=== PATIENT | male | born 1935 | race Caucasian/White ===

== ENCOUNTER 2017-12-13 09:44 | Observation (INO) | payer MEDICARE, OTHER ==
[2017-12-13] MEDS ORDERED: Diltiazem IV* 5 MG/ML 5 ML VIAL (for loading dose/IV Push) (25 MG) ONE (09:59)
[2017-12-13] MEDS ORDERED: Aspirin 81 mg CHEW TAB* 81 MG TAB.CHEW PO ONE (10:04)
[2017-12-13] MEDS ORDERED: Diltiazem IV* 5 MG/ML 5 ML VIAL (for loading dose/IV Push) (25 MG) IV SLOW PU ONE (10:04)
[2017-12-13] MEDS ORDERED: NS 0.9% 1000 ML* 1,000 ML IV ONE (10:04)
--- NOTE | 2017-12-13 10:28 | RAD ---
INDICATION: Tachycardia COMPARISON: None TECHNIQUE: An AP portable view obtained at 1020 hours is submitted. FINDINGS: Bones/Soft Tissues: There are no acute bony findings. Cardiomediastinal: The cardiomediastinal silhouette is normal. Lungs: There is mild hyperinflation with mild chronic appearing interstitial change. Pleura: There are no pleural effusions. Other: None IMPRESSION: MILD HYPERINFLATION MILD INTERSTITIAL PROMINENCE. NO FOCAL INFILTRATES OR VASCULAR CONGESTIVE FINDINGS
[2017-12-13 10:30] LABS: ABS Basophils 0 10^3/ul (0-0.2); ABS Eosinophils 0.1 10^3/ul (0-0.6); ABS Monocytes 0.6 10^3/ul (0-0.8); ABS Neutrophils 8.7 10^3/ul (1.5-7.7); ABS Nucleated RBC 0 10^3/ul; Eosinophil % 1.4 % (0-6); Hematocrit 49 % (42-52); Hemoglobin 16.7 g/dl (14.0-18.0); Lymphocyte % 9.5 % (25-47); Mean Corpuscular HGB Conc 34 g/dl (31-36); Mean Corpuscular Hemoglobin 30 pg (27-31); Mean Corpuscular Volume 89 fL (80-94); Mean Platelet Volume 8.2 um3 (7.4-10.4); Nucleated Red Blood Cells % 0; Platelet Count 167 10^3/ul (150-450); Red Cell Distribution Width 14 % (10.5-15); White Blood Count 10.5 10^3/ul (3.5-10.8)
[2017-12-13 10:38] LABS: INR 0.94 (0.77-1.02)
[2017-12-13 10:50] LABS: EGFR Non-African American 57.6 (>60)
[2017-12-13] MEDS ORDERED: Diltiazem DRIP* 100 MG/100 ML ADDV.BAG IVPB ONE (10:50)
[2017-12-13] MEDS ORDERED: Diltiazem IV VIAL* 125 MG in NS 0.9% 100 ML* 100 ML IVPB ONE ×3 (10:50→13:57)
--- NOTE | 2017-12-13 12:55 | ED ---
Leonora Segovia Julia, scribed for Juan Curran MD on 12/13/17 at 1004 . Dizziness - HPI Summary HPI Summary: This patient is an 82 year old M presenting to [facility] with a chief complaint of dizziness and headache after taking amlodipine for his recently diagnosed HTN, this morning. He states he is unable to walk straight. Reports headache, one bout of vomiting, and elevated blood pressure. Denies CP and SOB. Denies hx of a -fib or irregular heart rhythms. Denies other regular medications. - History Of Current Complaint Chief Complaint: EDDizziness Stated Complaint: DIZZINESS,HEADACHES Time Seen by Provider: 12/13/17 09:57 Hx Obtained From: Patient Onset/Duration: Still Present Timing: Hours Character: Dizzy Aggravating Factor(s): Other - new medication Alleviating Factor(s): Nothing Associated Signs And Symptoms: Positive: Vomiting, Unsteady Gait, Change In Medication. Negative: Chest Pain, SOB - Allergies/Home Medications Allergies/Adverse Reactions: Allergies Allergy/AdvReac Type Severity Reaction Status Date / Time No Known Allergies Allergy Verified 12/13/17 09:52 Home Medications: Home Medications Amlodipine Besylate [Norvasc 5 mg tab] 5 mg PO DAILY 12/13/17 [History Confirmed 12/13/17] Aspirin 81 mg CHEW TAB* 1 tab PO DAILY 12/13/17 [History Confirmed 12/13/17] PMH/Surg Hx/FS Hx/Imm Hx Cardiovascular History: Reports: Hx Hypertension Respiratory History: Denies: Hx Chronic Obstructive Pulmonary Disease (COPD) EENT History: Denies: Hx Deafness - Surgical History Surgery Procedure, Year, and Place: tonsils Infectious Disease History: No Infectious Disease History: Denies: Hx Clostridium Difficile, Hx Hepatitis, Hx Human Immunodeficiency Virus (HIV), Hx of Known/Suspected MRSA, Hx Shingles, Hx Tuberculosis, Hx Known/ Suspected VRE, Hx Known/Suspected VRSA, History Other Infectious Disease, Traveled Outside the [place] in Last 30 Days - Family History Known Family History: Negative: Diabetes - Social History Alcohol Use: Occasionally Substance Use Type: Reports: None Smoking Status (MU): Never Smoked Tobacco Have You Smoked in the Last Year: No Review of Systems Cardiovascular: Other - elevated BP Negative: Palpitations, Chest Pain Negative: Shortness Of Breath Positive: Vomiting Neurological: Other - dizziness, unsteady gait Positive: Headache All Other Systems Reviewed And Are Negative: Yes Physical Exam - Summary Physical Exam Summary: General: well-appearing, no pain distress Skin: warm, color reflects adequate perfusion, dry Head: normal Eyes: EOMI, NEETA ENT: normal Neck: supple, nontender Respiratory: CTA, breath sounds present Cardiovascular: tachycardia, irregularly irregular Abdomen: soft, nontender Bowel: present Musculoskeletal: normal, strength/ROM intact Neurological: sensory/motor intact, A&O x3 Psychological: affect/mood appropriate Triage Information Reviewed: Yes Vital Signs On Initial Exam: Initial Vitals Temp Pulse Resp BP Pulse Ox 97.1 F 87 16 114/69 96 12/13/17 09:47 12/13/17 09:47 12/13/17 09:47 12/13/17 09:47 12/13/17 09:47 Vital Signs Reviewed: Yes Diagnostics - Vital Signs Vital Signs Temp Pulse Resp BP Pulse Ox 12/13/17 09:47 97.1 F 87 16 114/69 96 - Laboratory Lab Results: Lab Results 12/13/17 12/13/17 12/13/17 Range/Units 10:08 10:08 10:08 WBC 10.5 (3.5-10.8) 10^3/ul RBC 5.50 H (4.00-5.40) 10^6/ul Hgb 16.7 (14.0-18.0) g/dl Hct 49 (42-52) % MCV 89 (80-94) fL MCH 30 (27-31) pg MCHC 34 (31-36) g/dl RDW 14 (10.5-15) % Plt Count 167 (150-450) 10^3/ul MPV 8.2 (7.4-10.4) um3 Neut % (Auto) 83.1 H (38-83) % Lymph % (Auto) 9.5 L (25-47) % [place] % (Auto) 5.7 (0-7) % Eos % (Auto) 1.4 (0-6) % Baso % (Auto) 0.3 (0-2) % Absolute Neuts (auto) 8.7 H (1.5-7.7) 10^3/ul Absolute Lymphs (auto) 1.0 (1.0-4.8) 10^3/ul Absolute Monos (auto) 0.6 (0-0.8) 10^3/ul Absolute Eos (auto) 0.1 (0-0.6) 10^3/ul Absolute Basos (auto) 0 (0-0.2) 10^3/ul Absolute Nucleated RBC 0 10^3/ul Nucleated RBC % 0 INR (Anticoag Therapy) 0.94 (0.77-1.02) APTT 33.7 (26.0-36.3) seconds D-Dimer, Quantitative < 200 (Less Than 230) ng/mL Sodium 139 (135-145) mmol/L Potassium 3.7 (3.5-5.0) mmol/L Chloride 104 (101-111) mmol/L Carbon Dioxide 27 (22-32) mmol/L Anion Gap 8 (2-11) mmol/L BUN 20 (6-24) mg/dL Creatinine 1.21 H (0.67-1.17) mg/dL Est GFR ( Amer) 69.6 (>60) Est GFR (Non-Af Amer) 57.6 (>60) BUN/Creatinine Ratio 16.5 (8-20) Glucose 130 H (70-100) mg/dL Lactic Acid (0.5-2.0) mmol/L Calcium 9.3 (8.6-10.3) mg/dL Magnesium 2.3 (1.9-2.7) mg/dL Total Bilirubin 0.80 (0.2-1.0) mg/dL AST 14 (13-39) U/L ALT 9 (7-52) U/L Alkaline Phosphatase 62 (34-104) U/L Total Creatine Kinase 98 (10-223) U/L CK-MB (CK-2) 3.8 (0.6-6.3) ng/mL Troponin I 0.00 (<0.04) ng/mL C-Reactive Protein < 1.00 (<8.01) mg/L B-Natriuretic Peptide ( - 100) pg/mL Total Protein 6.3 L (6.4-8.9) g/dL Albumin 3.9 (3.2-5.2) g/dL Globulin 2.4 (2-4) g/dL Albumin/Globulin Ratio 1.6 (1-3) Lipase 48 (11.0-82.0) U/L TSH 2.63 (0.34-5.60) mcIU/mL 12/13/17 12/13/17 Range/Units 10:08 10:08 WBC (3.5-10.8) 10^3/ul RBC (4.00-5.40) 10^6/ul Hgb (14.0-18.0) g/dl Hct (42-52) % MCV (80-94) fL MCH (27-31) pg MCHC (31-36) g/dl RDW (10.5-15) % Plt Count (150-450) 10^3/ul MPV (7.4-10.4) um3 Neut % (Auto) (38-83) % Lymph % (Auto) (25-47) % [place] % (Auto) (0-7) % Eos % (Auto) (0-6) % Baso % (Auto) (0-2) % Absolute Neuts (auto) (1.5-7.7) 10^3/ul Absolute Lymphs (auto) (1.0-4.8) 10^3/ul Absolute Monos (auto) (0-0.8) 10^3/ul Absolute Eos (auto) (0-0.6) 10^3/ul Absolute Basos (auto) (0-0.2) 10^3/ul Absolute Nucleated RBC 10^3/ul Nucleated RBC % INR (Anticoag Therapy) (0.77-1.02) APTT (26.0-36.3) seconds D-Dimer, Quantitative (Less Than 230) ng/mL Sodium (135-145) mmol/L Potassium (3.5-5.0) mmol/L Chloride (101-111) mmol/L Carbon Dioxide (22-32) mmol/L Anion Gap (2-11) mmol/L BUN (6-24) mg/dL Creatinine (0.67-1.17) mg/dL Est GFR ( Amer) (>60) Est GFR (Non-Af Amer) (>60) BUN/Creatinine Ratio (8-20) Glucose (70-100) mg/dL Lactic Acid 1.6 (0.5-2.0) mmol/L Calcium (8.6-10.3) mg/dL Magnesium (1.9-2.7) mg/dL Total Bilirubin (0.2-1.0) mg/dL AST (13-39) U/L ALT (7-52) U/L Alkaline Phosphatase (34-104) U/L Total Creatine Kinase (10-223) U/L CK-MB (CK-2) (0.6-6.3) ng/mL Troponin I (<0.04) ng/mL C-Reactive Protein (<8.01) mg/L B-Natriuretic Peptide 33 ( - 100) pg/mL Total Protein (6.4-8.9) g/dL Albumin (3.2-5.2) g/dL Globulin (2-4) g/dL Albumin/Globulin Ratio (1-3) Lipase (11.0-82.0) U/L TSH (0.34-5.60) mcIU/mL Result Diagrams: 12/13/17 10:08 12/13/17 10:08 Lab Statement: Any lab studies that have been ordered have been reviewed, and results considered in the medical decision making process. - Radiology CXR Radiology Interpretation Completed By: Radiologist - MILD HYPERINFLATION MILD INTERSTITIAL PROMINENCE. NO FOCAL INFILTRATES OR VASCULAR CONGESTIVE FINDINGS ED Physician has reviewed this report. - EKG 0958 Cardiac Rate: Tachycardia - 151 BPM EKG Rhythm: Atrial Fibrillation EKG Interpretation: minimal ST depression in inferior leads Dizzy Course/Dx - Course Course Of Treatment: ADMIT HOSPITALIST. - Diagnoses Provider Diagnoses: New onset a-fib - Provider Notifications Discussed Care Of Patient With: Jacinto Simmons - hospitalist Time Discussed With Above Provider: 11:05 Instructed by Provider To: Admit As Inpatient - Critical Care Time Critical Care Time: 30-74 min Discharge - Sign-Out/Discharge Documenting (check all that apply): Discharge/Admit/Transfer - admit - Discharge Plan Condition: Stable Disposition: ADMITTED TO [facility] Referrals: Krista Taylor MD [Medical Doctor] - - Billing Disposition and Condition Condition: STABLE Disposition: Admitted to [facility] The documentation as recorded by the Leonora saeed Julia accurately reflects the service I personally performed and the decisions made by Bina ibrahim William, MD.
[2017-12-13] MEDS ORDERED: Potassium Chlor TAB* 20 MEQ TAB.ER PO ONE (13:10)
--- NOTE | 2017-12-13 14:40 | RAD ---
INDICATION: Headaches COMPARISON: CT brain December 05, 2015 TECHNIQUE: Noncontrast axial source images were acquired from the skull base to the vertex. FINDINGS: Ventricles/sulci: There is age-related atrophy with compensatory dilatation of the CSF spaces.. Brain parenchyma: There is periventricular and subcortical white matter change compatible with chronic ischemia. There are no acute findings. Intracranial hemorrhage:None. Extra-axial spaces: There are no abnormal extra axial fluid collections or evidence of extra-axial mass. Calvarium: There is no calvarial fracture or other calvarial abnormality. Scalp: There is no evidence of scalp or extracalvarial soft tissue abnormality. Paranasal sinuses/mastoid: The paranasal sinuses and mastoid air cells are clear. Other: Incidental note is made of calcification of the falx. IMPRESSION: Age-related atrophy. Chronic microvascular ischemic change. No acute findings
[2017-12-13 14:51] LABS: Urine Appearance Clear; Urine Blood 1+ (Negative); Urine Color Straw; Urine Ketones Negative (Negative); Urine Protein Negative (Negative); Urine Specific Gravity 1.006 (1.010-1.030); Urine Urobilinogen Negative (Negative)
--- NOTE | 2017-12-13 15:52 | HP ---
CC: Dr. Guevara* [facility] MEDICINE HISTORY AND PHYSICAL: DATE OF ADMISSION: 12/13/17 PRIMARY CARE PHYSICIAN: Dr. Guevara. ATTENDING PHYSICIAN: Jacinto Simmons MD * (dictation provided by Rosalba Cruz NP). CHIEF COMPLAINT: Headache. HISTORY OF PRESENT ILLNESS: Mr. Tong is an 82-year-old male with some memory issues, though no clear diagnosis of dementia, as well as hypertension, who presents to the hospital today with concern for headaches. Mr. Tong is accompanied by his son who provides some of the history as well. Per the report the patient started complaining of headachesintermittently starting about a month ago. He again noted a headache this week to his son. 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 On Thursday, his was trying to escape from the home and he ran after her. On returning into the home he was holding his head and complaining of a severe headache. His blood pressure was taken in and around that time and noted to be 153/105. He took one of his amlodipine and it was then 145/84. The patient has also described feeling dizzy at times and that his head was pounding. He denies any chest palpitations or chest pain. He also denies shortness of breath. He has had no nausea, vomiting, diarrhea, abdominal pain. In the emergency room, Mr. Tong was confirmed to be in rapid atrial fibrillation with the heart rate running as high as 160. His blood pressure has been running 90s to 143 systolically. The remainder of his workup shows that he is mildly hypokalemic with potassium of 3.7 and magnesium is normal at 2.3. His troponin is normal at 0.00. His EKG again confirms the AFib. His D- dimer is less than 200. His chest x-ray shows no acute process. PAST MEDICAL HISTORY: Hypertension. MEDICATIONS: 1. Aspirin 81 mg p.o. daily. 2. Amlodipine 5 mg p.o. daily. ALLERGIES: No known drug allergies. FAMILY HISTORY: The patient reports his mother in her 90s of old age. Father related to heart problems and was a heavy smoker. SOCIAL HISTORY: No report of alcohol, tobacco, or drug use. The patient lives with his and is the primary caregiver for her, and she has advanced dementia. REVIEW OF SYSTEMS: A 14-point review of systems was completed with Mr. Tong and all those not mentioned above were negative. PHYSICAL EXAMINATION GENERAL: Mr. Tong is sitting up in the bed with his son at the bedside. He is in no acute distress and joking throughout the examination. VITAL SIGNS: Temperature 97.1, pulse rate has ran from 170s and is now about 119, respiratory rate 19, O2 saturation 96% on room air, blood pressure 143/112. LUNGS: Clear to auscultation bilaterally. No accessory muscle use and good aeration. HEART: S1, S2. No murmur, rub or gallop. Irregular and rapid. ABDOMEN: Soft, nontender with bowel sounds positive x4. EXTREMITIES: No cyanosis. No edema. NEUROLOGICAL: He is alert. He is oriented x3. He moves all extremities equally. There is no facial asymmetry or focal weakness. Extraocular movements are intact. There is no ataxia with [id number] and [id number]. SKIN: Intact. DIAGNOSTIC STUDIES/LAB DATA: WBC 10.5, hemoglobin 16.7, hematocrit 49, platelet count 167,000. INR 0.94. Sodium 139, potassium 3.7, chloride 104, serum bicarbonate 27, BUN 20, creatinine 1.21, glucose 130, lactic acid 1.61. Troponin 0.00. TSH 2.63. Again, chest x-ray showed no acute intrathoracic process. EKG showed atrial fibrillation with a heart rate of about 150. ASSESSMENT: Mr. Tong is an 82-year-old male with a past medical history of hypertension, who reported frequent pounding headaches over the past month, increasing in frequency, now found to be in rapid atrial fibrillation. Our plans are for observation in the hospital for the followin. Rapid atrial fibrillation: The patient's blood pressure is stable and he is asymptomatic at this point. He is on the diltiazem drip at 10 mg per hour. Plan to increase up to a max drip of 20 mg per hour and then likely transition over to metoprolol or other agents. The patient is having some good effect from the diltiazem. His heart rate is down from 170s to about 100s. It does increase as the patient is frequently and easily made anxious during conversations about his symptoms and about the fact that he needs to stay in the hospital overnight. The patient's son will be staying with him as much as possible to provide reassurance and supportive care. In terms of risk for atrial fibrillation, the patient does not drink alcohol. He has no history of cigarette smoking or chronic obstructive pulmonary disease. He states he does drink Mountain Dew and his son notes that this is "more than I would wish." It is possible that caffeine could be contributing and I have advised the family of this. The patient will have a transthoracic echocardiogram and have telemetry monitoring. In terms of his CHADS- VASC2 score, it is calculated to be 3 based on his age and his history of hypertension. I have discussed the risk and benefits of anticoagulation with the patient and his son, and the plan will be to start Xarelto tonight. The patient has no evidence of falls. He does not take ibuprofen regularly. He has no evidence or history of gastrointestinal bleed. The patient can follow up closely with his primary care physician, Dr. Mcelroy, to continue to review the risk and benefits of this medication to prevent stroke. 2. Hypertension. Plan to hold amlodipine while adjusting medications for atrial fibrillation. 3. Headaches. Patient reports frequent headaches recently. He has no focal neurological deficit. His family notes that this in the setting of extreme stress and anxiety related to caring for his who has advanced dementia. CT brain obtained today is negative. I question if patient's headaches could be related to afib and hypertension. Plan to control both and provide acetaminophen and/or ibuprofen. If patient's headaches persist despite treatment and control of stressors, further workup could be undertaken. 4. DVT prophylaxis with Xarelto. 5. Code status is full code. This was reviewed with the patient and his son at the bedside. TIME SPENT: Approximately 60 minutes were spent on the admission of this patient, more than half time spent with the patient at the bedside reviewing the events leading up to this hospitalization, performing the physical examination, and reviewing my plan of care. ROSALBA CRUZ NP [id number]/[facility] #: [id number] ASYA
[2017-12-13] MEDS: Acetaminophen TAB* 325 MG PO PRN ×2 (16:44→23:06)
[2017-12-13] MEDS: Diltiazem TAB* 30 MG PO SCH (23:06)
[2017-12-14] MEDS: Diltiazem TAB* 30 MG PO SCH ×3 (06:03→18:36)
[2017-12-14] MEDS: NS 0.9% 1000 ML* 1,000 ML IV SCH ×2 (10:48→22:02)
--- NOTE | 2017-12-14 12:25 | ECHO ---
Patient: SILVIANO JUAN [facility] Rec#: [id number] : 1935 Date: 12/14/2017 Age: 82y Height: 182.88 cm / 72.0 in Weight: 81.65 kg / 180.0 lbs Sex: M BSA: 2.04 Room#: [facility] Admit Date#: 12/13/2017 Type: Inpatient Referring: Rosalba Cruz NP Reading: Jori Campuzano MD Wood Type Finisher: Sophia Dela Cruz RDCS CC: Angelo Guevara MD Transthoracic Echocardiogram Indication: Atrial fibrillation BP: 116/72 HR: 76 Rhythm: NSR Findings History: HTN, a-fib. Technical Comments: The study quality is fair. Completed at 1020. Left Ventricle: The left ventricular chamber size is normal. Mild concentric left ventricular hypertrophy is observed. Global left ventricular wall motion and contractility are within normal limits. There is normal left ventricular systolic function. The estimated ejection fraction is 55-60%. Normal left ventricular diastolic filling is observed. Left Atrium: The left atrial chamber size is normal. Right Ventricle: Moderator Band present. The right ventricular cavity size is normal. The right ventricular global systolic function is normal. Right Atrium: The right atrium is mildly dilated. Aortic Valve: The aortic valve is trileaflet. There is mild thickening of the right coronary cusp. There is a trace of aortic regurgitation. There is no evidence of aortic stenosis. Mitral Valve: The mitral valve leaflets are mildly thickened. There is a trace of mitral regurgitation. There is no evidence of mitral stenosis. Tricuspid Valve: The tricuspid valve leaflets are normal. There is trace to mild tricuspid regurgitation. The right ventricular systolic pressure is estimated at 27 mmHg. No pulmonary hypertension is noted. There is no tricuspid stenosis. Pulmonic Valve: The pulmonic valve appears normal. There is a trace pulmonic regurgitation. There is no pulmonic stenosis. Pericardium: There is no significant pericardial effusion. Aorta: There is mild dilatation of the ascending aorta. The aortic arch is not well visualized. The aortic root is normal in size. Pulmonary Artery: The main pulmonary artery is not well visualized. Venous: The venous system is not well visualized. The inferior vena cava is dilated. There is a greater than 50% respiratory change in the inferior vena cava dimension. Conclusions Mild concentric left ventricular hypertrophy is observed. Global left ventricular wall motion and contractility are within normal limits. The estimated ejection fraction is 55-60%. The right ventricular global systolic function is normal. There is a trace of aortic regurgitation. There is a trace of mitral regurgitation. There is trace to mild tricuspid regurgitation. No pulmonary hypertension is noted. There is no significant pericardial effusion. Measurements Name Value Normal Range RVIDd (AP) 2D 2.8 cm (0.9 - 2.6) RVDdMajor (2D) 4.3 cm (2.2 - 4.4) RAd ISD 4CH 5.2 cm (3.4 - 4.9) RA (A4C)W 3.4 cm (2.9 - 4.6) IVSd (2D) 1.2 cm (0.6 - 1) LVPWd (2D) 1.2 cm (0.6 - 1) LVIDd (2D) 3.7 cm (3.6 - 5.4) LVIDs (2D) 2.5 cm - LV FS (2D) 31 % (25 - 45) Aortic Annulus 2.4 cm (1.4 - 2.6) Ao root diameter (2D) 3.4 cm (2.1 - 3.5) Ascending Ao 3.7 cm (2.1 - 3.4) LA dimension (AP) 2D 3.3 cm (2.3 - 3.8) LAd ISD 4CH 5.2 cm (2.9 - 5.3) LA ISD 4CH W 3.8 cm (2.5 - 4.5) Name Value Normal Range LA ESV SP 4CH (A/L) 49 ml - LA ESV SP 2CH (A/L) 47 ml - LA ESV BP (A/L) 50 ml - LA ESV BP (A/L) index 24 ml/m2 - LA ESV SP 4CH (MOD) 46 ml - LA ESV SP 2CH (MOD) 46 ml - Name Value Normal Range MV E-wave Vmax 0.73 m/sec - MV deceleration time 251.9 msec - MV A-wave Vmax 0.58 m/sec - MV E:A ratio 1.26 ratio - LV septal e' Vmax 0.09 m/sec - LV lateral e' Vmax 0.11 m/sec - LV E:e' septal ratio 8.11 ratio - LV E:e' lateral ratio 6.64 ratio - Name Value Normal Range AV Vmax 1.42 m/sec - AV VTI 30.1 cm - AV peak gradient 8.17 mmHg - AV mean gradient 4.56 mmHg - LVOT Vmax 0.87 m/sec - LVOT VTI 17.61 cm - LVOT peak gradient 3.05 mmHg - LVOT mean gradient 1.41 mmHg - VINITA Vmax 0.58 m/sec - Name Value Normal Range TR Vmax 2.1 m/sec - TR peak gradient 19 mmHg - RAP 8 mmHg - RVSP 27 mmHg - IVC diameter 2.1 cm - Name Value Normal Range PV Vmax 1.01 m/sec - PV peak gradient 4.11 mmHg -
[2017-12-14] MEDS: Acetaminophen TAB* 325 MG PO SCH ×2 (13:12→22:04)
[2017-12-14] MEDS ORDERED: Rivaroxaban TAB(*) 20 MG TAB PO SCH (17:00)
--- NOTE | 2017-12-14 19:39 | PN ---
Subjective Date of Service: 12/14/17 Interval History: Pt seen and examined. Meds and labs reviewed. ROS: Pt complaining of STOVALL for the last 3 months. Denied dizziness, F/C, N/V, CP, SOB, increased cough, sputum production, abd pain, diarrhea, constipation, dysuria, myalgias, arthralgias, throat pain, and new skin lesions. The rest of the 14 point ROS are unremarkable. PHYSICAL EXAM: GEN APPEARANCE: Awake, not in acute distress HEENT: NC/AT, PERRLA, moist oral mucosa, (-) throat erythema NECK: Soft, supple, (-) cervical LAD, (-)JVD HEART: S1S2 WNL, RRR, No MRG CHEST: CTA, BL, GAE, No W/R/R ABD: Soft, ND/NT, NABS 4x Q EXT: No C/C/E SKIN: Warm to touch PSYCH: No active psychosis, hallucinations, depression, SI/HI Objective Active Medications: Acetaminophen (Tylenol Tab*) 650 mg PO Q6H PRN PRN Reason: PAIN Last Admin: 12/13/17 23:06 Dose: 650 mg Acetaminophen (Tylenol Tab*) 975 mg PO BID [facility] Last Admin: 12/14/17 13:12 Dose: 975 mg Diltiazem HCl (Cardizem Tab*) 30 mg PO Q6HR [facility] Last Admin: 12/14/17 18:36 Dose: 30 mg Sodium Chloride (Ns 0.9% 1000 Ml*) 1,000 mls @ 100 mls/hr IV PER RATE [facility] Last Admin: 12/14/17 10:48 Dose: 100 mls/hr Rivaroxaban (Xarelto(*)) 15 mg PO DAILY [facility] Vital Signs - 8 hr 12/14/17 15:37 Temperature 98.1 F Pulse Rate 85 Respiratory 18 Rate Blood Pressure 137/76 (mmHg) O2 Sat by Pulse 92 Oximetry Oxygen Devices in Use Now: None Result Diagrams: 12/13/17 10:08 12/14/17 05:49 Additional Lab and Data: Lab Results 12/13/17 12/13/17 12/13/17 Range/Units 10:08 10:08 10:08 WBC 10.5 (3.5-10.8) 10^3/ul RBC 5.50 H (4.00-5.40) 10^6/ul Hgb 16.7 (14.0-18.0) g/dl Hct 49 (42-52) % MCV 89 (80-94) fL MCH 30 (27-31) pg MCHC 34 (31-36) g/dl RDW 14 (10.5-15) % Plt Count 167 (150-450) 10^3/ul MPV 8.2 (7.4-10.4) um3 Neut % (Auto) 83.1 H (38-83) % Lymph % (Auto) 9.5 L (25-47) % [place] % (Auto) 5.7 (0-7) % Eos % (Auto) 1.4 (0-6) % Baso % (Auto) 0.3 (0-2) % Absolute Neuts (auto) 8.7 H (1.5-7.7) 10^3/ul Absolute Lymphs (auto) 1.0 (1.0-4.8) 10^3/ul Absolute Monos (auto) 0.6 (0-0.8) 10^3/ul Absolute Eos (auto) 0.1 (0-0.6) 10^3/ul Absolute Basos (auto) 0 (0-0.2) 10^3/ul Absolute Nucleated RBC 0 10^3/ul Nucleated RBC % 0 INR (Anticoag Therapy) 0.94 (0.77-1.02) APTT 33.7 (26.0-36.3) seconds D-Dimer, Quantitative < 200 (Less Than 230) ng/mL Sodium 139 (135-145) mmol/L Potassium 3.7 (3.5-5.0) mmol/L Chloride 104 (101-111) mmol/L Carbon Dioxide 27 (22-32) mmol/L Anion Gap 8 (2-11) mmol/L BUN 20 (6-24) mg/dL Creatinine 1.21 H (0.67-1.17) mg/dL Est GFR ( Amer) 69.6 (>60) Est GFR (Non-Af Amer) 57.6 (>60) BUN/Creatinine Ratio 16.5 (8-20) Glucose 130 H (70-100) mg/dL Lactic Acid (0.5-2.0) mmol/L Calcium 9.3 (8.6-10.3) mg/dL Magnesium 2.3 (1.9-2.7) mg/dL Total Bilirubin 0.80 (0.2-1.0) mg/dL AST 14 (13-39) U/L ALT 9 (7-52) U/L Alkaline Phosphatase 62 (34-104) U/L Total Creatine Kinase 98 (10-223) U/L CK-MB (CK-2) 3.8 (0.6-6.3) ng/mL Troponin I 0.00 (<0.04) ng/mL C-Reactive Protein < 1.00 (<8.01) mg/L B-Natriuretic Peptide ( - 100) pg/mL Total Protein 6.3 L (6.4-8.9) g/dL Albumin 3.9 (3.2-5.2) g/dL Globulin 2.4 (2-4) g/dL Albumin/Globulin Ratio 1.6 (1-3) Lipase 48 (11.0-82.0) U/L TSH 2.63 (0.34-5.60) mcIU/mL 12/13/17 12/13/17 Range/Units 10:08 10:08 WBC (3.5-10.8) 10^3/ul RBC (4.00-5.40) 10^6/ul Hgb (14.0-18.0) g/dl Hct (42-52) % MCV (80-94) fL MCH (27-31) pg MCHC (31-36) g/dl RDW (10.5-15) % Plt Count (150-450) 10^3/ul MPV (7.4-10.4) um3 Neut % (Auto) (38-83) % Lymph % (Auto) (25-47) % [place] % (Auto) (0-7) % Eos % (Auto) (0-6) % Baso % (Auto) (0-2) % Absolute Neuts (auto) (1.5-7.7) 10^3/ul Absolute Lymphs (auto) (1.0-4.8) 10^3/ul Absolute Monos (auto) (0-0.8) 10^3/ul Absolute Eos (auto) (0-0.6) 10^3/ul Absolute Basos (auto) (0-0.2) 10^3/ul Absolute Nucleated RBC 10^3/ul Nucleated RBC % INR (Anticoag Therapy) (0.77-1.02) APTT (26.0-36.3) seconds D-Dimer, Quantitative (Less Than 230) ng/mL Sodium (135-145) mmol/L Potassium (3.5-5.0) mmol/L Chloride (101-111) mmol/L Carbon Dioxide (22-32) mmol/L Anion Gap (2-11) mmol/L BUN (6-24) mg/dL Creatinine (0.67-1.17) mg/dL Est GFR ( Amer) (>60) Est GFR (Non-Af Amer) (>60) BUN/Creatinine Ratio (8-20) Glucose (70-100) mg/dL Lactic Acid 1.6 (0.5-2.0) mmol/L Calcium (8.6-10.3) mg/dL Magnesium (1.9-2.7) mg/dL Total Bilirubin (0.2-1.0) mg/dL AST (13-39) U/L ALT (7-52) U/L Alkaline Phosphatase (34-104) U/L Total Creatine Kinase (10-223) U/L CK-MB (CK-2) (0.6-6.3) ng/mL Troponin I (<0.04) ng/mL C-Reactive Protein (<8.01) mg/L B-Natriuretic Peptide 33 ( - 100) pg/mL Total Protein (6.4-8.9) g/dL Albumin (3.2-5.2) g/dL Globulin (2-4) g/dL Albumin/Globulin Ratio (1-3) Lipase (11.0-82.0) U/L TSH (0.34-5.60) mcIU/mL Assess/Plan/Problems-Billing Assessment: - Patient Problems (1) Headache Current Visit: Yes Status: Acute Code(s): R51 - HEADACHE SNOMED Code(s): 26119441 Comment: -Unclear if this is related to A.fib given its onset -CT head, non-contrast (2) Atrial fibrillation Current Visit: Yes Status: Acute Code(s): I48.91 - UNSPECIFIED ATRIAL FIBRILLATION SNOMED Code(s): 79568576 Comment: -Continue Diltiazem and Rivaroxaban (3) Hypertension Current Visit: Yes Status: Acute Code(s): I10 - ESSENTIAL (PRIMARY) HYPERTENSION SNOMED Code(s): 48140008 Comment: -Well controlled (4) DVT prophylaxis Current Visit: Yes Status: Acute Code(s): KMQ9625 - SNOMED Code(s): 567825481 Comment: -As above Status and Disposition: -For PT eval -Possible D/C in AM?
[2017-12-15] MEDS: Diltiazem TAB* 30 MG PO SCH ×3 (00:16→12:09)
[2017-12-15] MEDS ORDERED: Rivaroxaban TAB(*) 15 MG PO SCH (09:00)
[2017-12-15] MEDS: Acetaminophen TAB* 325 MG PO SCH (09:19)
[2017-12-15 12:00] VITALS: BP 134/81
[2017-12-15] MEDS ORDERED: Doxycycline (NF) 100 MG TAB PO SCH (12:00)
--- NOTE | 2017-12-16 09:41 | DS ---
CC: Dr. Jacinto Simmons; Dr. Angelo Guevara; Dr. Juan Curran DISCHARGE SUMMARY: DATE OF ADMISSION: DATE OF DISCHARGE: 12/15/17 DISCHARGE DIAGNOSES: 1. Atrial fibrillation, rate controlled, and on anticoagulation on rivaroxaban. 2. Headache, chronic. The patient mentions that he has had this for 3 months, improved, negative CT scan of the head. 3. Hypertension, well controlled. HISTORY OF PRESENT ILLNESS/HOSPITAL COURSE: The patient is an 82-year-old gentleman with history of hypertension and question of possible dementia, who was admitted with a chief complaint of headache. He was found to have atrial fibrillation with rapid ventricular response with a rate of 160, which has then subsequently responded by placing him on a diltiazem drip after an appropriate bolus in the ED. He was then subsequently transitioned to diltiazem p.o. and on the day of discharge was still on short-acting diltiazem. He had been advised to take his short-acting diltiazem to its conclusion for today and to stop this tomorrow as he starts his long-acting diltiazem on . He was also found to have a calculated CHADS-VASc score of 3 and HAS-BLED score of 2 and this suggests that he would benefit more with anticoagulation with low risk for GI bleed. The patient also has not been known to fall frequently. It is unclear as to why he does have some headache that he complains of but he mentions that this has subsequently improved when he had been given Tylenol. He mentions that his headache started about 3 or 4 months prior to this presentation and it may be either coincidental or may be have been exacerbated by his atrial fibrillation with rapid ventricular response. He had been advised to continue to monitor his symptoms and if it does get worse that he will need to be re-evaluated but to contact his primary care physician first. He had a brain imaging, which was otherwise unremarkable for acute issues, which only shows some age-related atrophy as well as chronic microvascular ischemic change. The patient and family had been informed of this result. He had been advised to call/follow up with his PCP within 3 days post discharge and schedule a followup appointment JUAN. He was also advised to call my office if any questions on prescriptions and/or discharge instructions and to call [facility] if he feels that he needs to be re-evaluated when his PCP would not be able to immediately do so. He was also advised to take his short-acting diltiazem today and finish it to its conclusion. He had been given 3 tablets of this and to stop the short acting by tomorrow as he starts his long-acting diltiazem. He had been advised to take his medication as prescribed and to follow up with chief order dispatcher of his choosing as an outpatient. The patient is currently being seen by a PCP in the [place] system and unsure whether he wants a chief order dispatcher within the same system. He had been given Dr. Yee's office number in case they choose a chief order dispatcher outside of the [place] system at #[phone]. PHYSICAL EXAMINATION: Reveals most recent vital signs of record with blood pressure of 134/81, 98.2 degrees Fahrenheit, 80 beats per minute of heart rate, 16 per minute of respiratory rate, saturating at 100% room air. General Appearance: The patient is awake, not in acute distress. HEENT: Normocephalic , atraumatic. PERRLA. Extraocular muscles intact. Negative for icterus. Moist oral mucosa. Negative throat erythema. Neck is soft, supple with no cervical lymphadenopathy. No JVD. Heart: S1, S2 within normal limits. Regular rate and rhythm. No murmurs, rubs, or gallops. Chest: Clear to auscultation bilaterally. Good air entry. No wheezes, rales, or rhonchi. Abdomen is soft, nondistended, nontender. Normoactive bowel sounds x4 quadrants. Extremities: No cyanosis, clubbing, or edema. Psychiatric: No active psychosis, depression, suicidal or homicidal ideations. Skin is warm to touch. REVIEW OF SYSTEMS: The patient complains of an improving headache as described above. Other than this, denied any recent dizziness, fevers, chills, nausea, vomiting, chest pain, shortness of breath, increased cough or sputum production , abdominal pain, diarrhea, constipation, pain and/or increased frequency of urination, myalgias, arthralgias, throat pain, or new skin lesions. The rest of the 14-point review of systems is otherwise unremarkable. DISCHARGE MEDICATIONS: As follows: 1. Tylenol 975 p.o. b.i.d. 2. Diltiazem 120 mg p.o. daily starting tomorrow and he is to finish his diltiazem 30 mg p.o. q.6 up until tonight. 3. He is to continue his rivaroxaban 15 mg p.o. daily. [id number]/[facility] #: [id number] [facility]
== END 2017-12-15 15:01 | disposition home or self-care (01) ==
LOC: ED 09:44 → MEDTELE 14:33
PROVIDERS: ADMIT Internal Medicine; ATTEND Student in an Organized Health Care Education/Training Program
DX: I48.91 Unspecified atrial fibrillation (principal); Z79.01 Long term (current) use of anticoagulants; R51 Headache; I10 Essential (primary) hypertension; Z79.82 Long term (current) use of aspirin; R42 Dizziness and giddiness
CPT/HCPCS: 36415; 70450; 71045; 80048; 80053; 81003; 81015; 82550; 82553; 83605; 83690; 83735; 83880; 84443; 84484; 85025; 85379; 85610; 85730; 86140; 93005; 93306; 96365; 96366; 96375; 99285; A9270-GY; G0378; G8978-GP-CI; G8979-GP-CI; G8980-GP-CI